=== PATIENT | female | born 1940 | race Caucasian/White ===

== ENCOUNTER 2018-08-27 06:51 | Emergency (ER) | payer OTHER ==
[~2018-08-27] VITALS: Ht 157.5 cm; Wt 68.9 kg
[~2018-08-27 06:51] MED LIST: ALPRAZOLAM0.25 MG PO; ARICEPT5 MG; ASPIR 8181 MG PO; BENAZEPRIL HCL/1 TAB PO; BENAZEPRIL HYDR20 M1 PO; CIPRO250 MG; CYCLOBENZAPRINE5 MG PO; ESG PO; FLA500 PO; HCTZ/LISINOPRIL1 TA1 PO; IBUPROFEN600 MG PO; LAC PO; LEVOFLOXACIN500 M1 PO; MOTRIN800 MG PO; NOR10 PO; PROTONIX40 MG PO; TRE400; XANAX0.25 MG PO; ZOC20 PO
[2018-08-27 06:56] VITALS: Ht 157.5 cm; Wt 68.9 kg
[2018-08-27 08:14] LABS: BASOPHIL % 0.4 % (0-2); PLATELET COUNT 281 x10^3mcL (130-400); RED CELL DISTRIBUTION WIDTH 13.4 % (11.5-14.5)
[2018-08-27 08:22] LABS: CALCIUM 10.3 mg/dL (8.5-10.1); CARBON DIOXIDE 22.9 mmol/L (21-32); CHLORIDE SERUM 104 mmol/L (98-107); CREATININE SERUM 1.3 mg/dL (0.6-1.0); GLUCOSE SERUM 134 mg/dL (74-106); POTASSIUM SERUM 3.8 mmol/L (3.5-5.1); SODIUM SERUM 138 mmol/L (136-145)
[2018-08-27 08:26] LABS: ALBUMIN 4.3 g/dL (3.4-5.0); ALKALINE PHOSPHATASE 69 U/L (46-116); ALT/SGPT 30 U/L (14-59); AST/SGOT 19 U/L (15-37); BILIRUBIN TOTAL 0.4 mg/dL (0.20-1.00); LIPASE 134 IU/L (73-393); TOTAL PROTEIN, SERUM 8.1 g/dL (6.4-8.2)
[2018-08-27 13:46] VITALS: BP 99/58
== END 2018-08-27 14:02 | disposition home or self-care (01) ==
LOC: ED 06:51
PROVIDERS: Emergency Medicine
DX: E86.0 Dehydration (principal); R25.2 Cramp and spasm; R19.7 Diarrhea, unspecified; I10 Essential (primary) hypertension; Z87.19 Personal history of other diseases of the digestive system; Z90.49 Acquired absence of other specified parts of digestive tract
CPT/HCPCS: 87046; 87046-59; J2060; J2405; J3475; J7030; J7040